=== PATIENT | male | born 1990 | race African-American/Black ===

== ENCOUNTER 2018-10-01 17:13 | Emergency (ER) | payer SELFPAY ==
[~2018-10-01] VITALS: Ht 188 cm; Wt 127.3 kg
[~2018-10-01 17:13] MED LIST: KLONOPIN1 MG PO
[2018-10-01 17:40] VITALS: Ht 188 cm; Wt 127.3 kg
[2018-10-01] MEDS ORDERED: PHENERGAN DM SYR5 ML PO (18:40)
[2018-10-01] MEDS ORDERED: TAMIFLU75 MG PO (18:40)
[2018-10-01 19:56] VITALS: BP 116/79
== END 2018-10-01 19:56 | disposition home or self-care (01) ==
LOC: D.ER 17:13
DX: J09.X2 Influenza due to identified novel influenza A virus with other respiratory manifestations (principal); M79.18 Myalgia, other site; R05 Cough; R09.89 Other specified symptoms and signs involving the circulatory and respiratory systems

== ENCOUNTER 2020-04-23 19:23 | Emergency (ER) | payer OTHER ==
[~2020-04-23] VITALS: Ht 188 cm; Wt 138.2 kg
[~2020-04-23 19:23] MED LIST changes: +PHENERGAN DM SYR5 ML PO; +TAMIFLU75 MG PO
[2020-04-23 19:33] VITALS: Ht 188 cm; Wt 138.2 kg
[2020-04-23] MEDS ORDERED: ZANAFLEX4 MG PO (20:30)
[2020-04-23] MEDS ORDERED: NAPROSYN500 MG PO (20:30)
[2020-04-23 21:45] VITALS: BP 122/78
== END 2020-04-23 21:45 | disposition home or self-care (01) ==
LOC: D.ER 19:23
DX: S80.811A Abrasion, right lower leg, initial encounter (principal); S39.012A Strain of muscle, fascia and tendon of lower back, initial encounter; M23.91 Unspecified internal derangement of right knee; W17.89XA Other fall from one level to another, initial encounter; Y93.9 Activity, unspecified; Y92.9 Unspecified place or not applicable; M25.561 Pain in right knee